=== PATIENT | male | born 1955 | race Caucasian/White ===

== ENCOUNTER 2023-02-19 10:49 | Day surgery (SDC) | payer OTHER ==
[~2023-02-19] VITALS: Ht 193 cm; Wt 88.3 kg
[~2023-02-19 10:49] MED LIST: ASPI81CH PO; EZET10 PO; Isosorbide Mono30 MG PO; K-TAB ER20 ME1 PO; LOSA25 PO; METO25ER PO; NITR.4SL SL; SOAANZ40 M1 PO
--- NOTE | 2023-02-19 11:16 | NUR ---
02/19/23 1116 Rosalia Miller PROPARACAINE PLACED IN LEFT EYE AT 1108. PLEDGET PLACED IN LEFT EYE AT 1109. PATIENT TOELRATED WELL.
== END 2023-02-19 12:39 | disposition home or self-care (01) ==
LOC: ORSCSDS 10:49
PROVIDERS: Student in an Organized Health Care Education/Training Program
PROC: 08RK3JZ Replacement of Left Lens with Synthetic Substitute, Percutaneous Approach (ICD-10-PCS; principal; 2023-02-19 12:00)
DX: H25.12 Age-related nuclear cataract, left eye (principal); Z96.1 Presence of intraocular lens; I10 Essential (primary) hypertension; I25.2 Old myocardial infarction; Z79.82 Long term (current) use of aspirin; Z79.899 Other long term (current) drug therapy; Z87.891 Personal history of nicotine dependence; H52.202 Unspecified astigmatism, left eye
CPT/HCPCS: J2250; J3010; J7040; V2632

== ENCOUNTER 2024-09-26 09:27 | Emergency (ER) | payer OTHER ==
[~2024-09-26] VITALS: Ht 193 cm; Wt 82.5 kg
== END 2024-09-26 14:18 | disposition home or self-care (01) ==
LOC: ER 09:27
DX: M48.54XA Collapsed vertebra, not elsewhere classified, thoracic region, initial encounter for fracture (principal); R00.1 Bradycardia, unspecified; Z88.5 Allergy status to narcotic agent; Z79.82 Long term (current) use of aspirin; Z79.899 Other long term (current) drug therapy
CPT/HCPCS: 72128; 93242; A9270